=== PATIENT | male | born 1935 | race Caucasian/White ===

== ENCOUNTER 2017-02-18 19:51 | Emergency (ER) | payer MEDICARE ==
--- NOTE | 2017-02-18 21:21 | CT ---
CT PELVIC NONCONTRAST: Indication: Post-traumatic pelvic pain. Comparison: 11-21-16 FINDINGS: Re-demonstration of abnormal mottled mixed sclerotic and lucent density of the sacrum, compatible wit h sequella from prior sacral insufficiency fractures. There is also stable appearing mixed lucent and sclerotic density of each iliac wing. No traumatic diastasis of the symphysis pubis or either sacroi liac joint. Transversely oriented subtle fracture lucency of the medial aspect of the right ileum is grossly stable with a slight area of periosteal reaction. Stable appearing height loss of the imaged lower lumbar spine as well as a endplate sclerosis and prominent gas vacuum phenomenon. No displaced fracture of either hip. No evidence for pelvic hematoma. IMPRESSION: Re-demonstration of post-traumatic deformities of the pelvic bones bilaterally. POS: [facility]
== END 2017-02-18 21:30 | disposition home or self-care (01) ==
LOC: SCSER 19:51
DX: S70.01XA Contusion of right hip, initial encounter (principal); F03.90 Unspecified dementia, unspecified severity, without behavioral disturbance, psychotic disturbance, mood disturbance, and anxiety; E03.9 Hypothyroidism, unspecified; E27.1 Primary adrenocortical insufficiency; K21.9 Gastro-esophageal reflux disease without esophagitis; E78.5 Hyperlipidemia, unspecified; M06.9 Rheumatoid arthritis, unspecified; K31.84 Gastroparesis; Z87.891 Personal history of nicotine dependence; W18.30XA Fall on same level, unspecified, initial encounter; Y92.009 Unspecified place in unspecified non-institutional (private) residence as the place of occurrence of the external cause
CPT/HCPCS: 72192

== ENCOUNTER 2017-03-13 12:09 | Emergency (ER) | payer MEDICARE ==
[2017-03-13 13:18] LABS: #Basophils 0.1 thou/uL (0.0-0.2); #Lymphocytes 0.5 thou/uL (1.20-3.40); #Monocytes 0.3 thou/uL (0.11-0.59); #Neutrophils 5.3 thou/uL (1.40-6.50); %Basophils 1.2 % (0.0-1.0); %Eosinophils 0.5 % (0.0-10.0); %Lymphocytes 7.8 % (21.0-51.0); %Monocytes 5.1 % (0.0-10.0); Hematocrit 40.9 % (42.0-52.0); Mean Platelet Volume 5.7 fL (7.4-10.4); Red Blood Cell (RBC) Count 4.01 mill/uL (4.70-6.10); White Blood Cell (WBC) Count 6.2 thou/uL (4.8-10.8)
[2017-03-13 13:28] LABS: Prothrombin Time 13.5 SEC (12.0-14.7)
[2017-03-13 13:38] LABS: ALT (SGPT) 24 U/L (8-55); AST (SGOT) 20 U/L (5-34); Alkaline Phosphatase 102 U/L (40-150); Anion Gap 13 mmol/L (10-20); BUN (Urea Nitrogen) 24 mg/dL (8.4-25.7); Bilirubin, Total 0.3 mg/dL (0.2-1.2); Calc. Creatinine Clearance 0 mL/min (70-130); Calcium 9.8 mg/dL (7.8-10.44); Carbon Dioxide 29 mmol/L (23-31); Chloride 105 mmol/L (98-107); Estimated GFR-MDRD 82; Globulin 2.9 g/dL (2.4-3.5); Protein, Total 6.5 g/dL (5.8-8.1)
--- NOTE | 2017-03-13 14:01 | RAD ---
PORTABLE CHEST: Date: 03-13-17 Provided Clinical History: Fall. FINDINGS: Comparison 11-21-16. Cardiac and mediastinal silhouette is unchanged in appearance. Vascular calcification involves the ao rtic arch. Left subclavian cardiac pacing device is again seen and similar in position. No focal cons olidation, pleural fluid, or pneumothorax apparent. The bony thorax appears grossly intact. IMPRESSION: No evidence for an acute cardiopulmonary process. POS: [facility]
--- NOTE | 2017-03-13 14:02 | CT ---
CT HEAD NONCONTRAST: History: Fall, head injury. FINDINGS: There is no evidence of acute intracranial hemorrhage or infarct. Diffuse cortical atrophy and chroni c ischemic small vessel disease are apparent. There is no mass effect or shift of midline structures. Minimal mucosal thickening is apparent within the left maxillary sinus. There is calcification in th e arterial structures of the brain base. IMPRESSION: 1. No acute traumatic injury is demonstrated. 2. Atherosclerosis. POS: [facility]
--- NOTE | 2017-03-13 14:05 | CT ---
CT CERVICAL SPINE NONCONTRAST: History: Fall. Neck injury. FINDINGS: Vertebral body heights are maintained. Spondylolisthesis at the C3-4 and C4-5 levels is favored to be related to post-operative changes, as there is multilevel surgical absence of the posterior elements . Multilevel disc space narrowing and prominent osteophytosis are present. No acute fracture or dislo cation. There is calcification in the arterial structures. IMPRESSION: Prominent degenerative changes and post-operative changes of the cervical spine. No acute osseous abn ormalities are demonstrated. POS: [facility]
--- NOTE | 2017-03-13 15:03 | CT ---
CT RIGHT HIP NONCONTRAST: HISTORY: Fall. Right hip injury. FINDINGS: There is a moderate degree of joint space narrowing, osteophytosis, and subchondral sclerosis at the hip. No displaced fractures are apparent. osseous structures are severely demineralized. Subtle sc lerosis and cortical thickening at the superior acetabular level has the appearance of an old healed injury. There is some irregularity of the articular surface of the acetabulum. IMPRESSION: 1. Acetabular abnormality has the appearance of an old injury. No acute fractures are apparent. 2. Osteoporosis. 3. Mild osteoarthritic changes, right hip. POS: [facility]
[2017-03-13 15:16] LABS: Bilirubin Negative (Negative); Blood, Urine Trace (Negative); Glucose, Urine (Dipstick) Negative (Negative); Ketone, Urine Negative (Negative); Nitrite Negative (Negative); Protein, Urine (Dipstick) 30 mg/dL (Neg-Trace); Urobilinogen 0.2 mg/dL (0.2-1.0)
[2017-03-13 15:24] LABS: Bacteria/HPF Rare-Few HPF (None Seen); RBC/HPF 0-3 HPF (0-3); Squamous Epithelial None Seen HPF (0-3); WBC/HPF None Seen HPF (0-3)
== END 2017-03-13 15:50 | disposition home or self-care (01) ==
LOC: SCSER 12:09
DX: S09.90XA Unspecified injury of head, initial encounter (principal); M25.551 Pain in right hip; K21.9 Gastro-esophageal reflux disease without esophagitis; E78.5 Hyperlipidemia, unspecified; M06.9 Rheumatoid arthritis, unspecified; Z87.891 Personal history of nicotine dependence; W19.XXXA Unspecified fall, initial encounter; Y92.009 Unspecified place in unspecified non-institutional (private) residence as the place of occurrence of the external cause
CPT/HCPCS: 70450; 71010; 72125; 80053; 81003; 81015; 85025; 85610

== ENCOUNTER 2017-03-19 19:08 | Inpatient (IN) | payer MEDICARE ==
[2017-03-19 20:21] LABS: #Lymphocytes 0.5 thou/uL (1.20-3.40); #Monocytes 0.3 thou/uL (0.11-0.59); #Neutrophils 4.3 thou/uL (1.40-6.50); %Basophils 0.2 % (0.0-1.0); %Eosinophils 0.5 % (0.0-10.0); %Lymphocytes 9.3 % (21.0-51.0); %Monocytes 5.8 % (0.0-10.0); %Neutrophils 84.2 % (42.0-75.0); Hemoglobin 12.4 g/dL (14.0-18.0); Mean Corpuscular HGB CONC 32.4 g/dL (32.0-36.0); Mean Corpuscular Hemoglobin 34.1 pg (27.0-31.0); Mean Platelet Volume 6.7 fL (7.4-10.4); Platelet Count 162 thou/uL (130-400); RBC Distribution Width 13.1 % (11.5-14.5); Red Blood Cell (RBC) Count 3.62 mill/uL (4.70-6.10); White Blood Cell (WBC) Count 5.1 thou/uL (4.8-10.8)
[2017-03-19 20:39] LABS: Acetaminophen Less than 6.0 mcg/mL (10.0-30.0); Alcohol Less than 10 mg/dL (Less than 10); Salicylate Less than 8.0 mg/dL (15.0-30.0)
[2017-03-19 20:41] LABS: ALT (SGPT) 21 U/L (8-55); AST (SGOT) 16 U/L (5-34); Albumin 3.3 g/dL (3.4-4.8); Alkaline Phosphatase 106 U/L (40-150); Anion Gap 13 mmol/L (10-20); BUN (Urea Nitrogen) 23 mg/dL (8.4-25.7); Bilirubin, Total 0.3 mg/dL (0.2-1.2); CK (CPK) 31 U/L (30-200); Calc. Creatinine Clearance 0 mL/min (70-130); Calcium 9.9 mg/dL (7.8-10.44); Carbon Dioxide 27 mmol/L (23-31); Chloride 104 mmol/L (98-107); Estimated GFR-MDRD 77; Globulin 2.6 g/dL (2.4-3.5); Glucose 101 mg/dL (83-110); Lipase 14 U/L (8-78); Potassium 4.2 mmol/L (3.5-5.1); Protein, Total 5.9 g/dL (5.8-8.1); Sodium 140 mmol/L (136-145)
[2017-03-19 20:44] LABS: CKMB 1.5 ng/mL (0-6.6); Troponin I 0.016 ng/mL (< 0.028)
[2017-03-19] MEDS ORDERED: Lidocaine 4% Topical Sol 50 ML BOT ONE (21:01)
[2017-03-19] MEDS ORDERED: Lidocaine 2% Jelly 5 ML TUBE ONE (21:02)
[2017-03-19] MEDS ORDERED: Lidocaine 1% w/Epinephrine 1:100K 20 ML VIAL ONE (21:12)
--- NOTE | 2017-03-19 22:06 | RAD ---
CHEST ONE VIEW 03/19/17 COMPARISON: 03/13/17 HISTORY: Weakness and lethargy. Hypoxia. FINDINGS: Stable left sided transvenous pacemaker. Persistent atherosclerosis. Stable cardiac silhouette. Pulmo nary vessels and hilum are normal. Costophrenic angles are clear. Bibasilar interstitial infiltrates with a more focal alveolar opacification in the right lower lobe. No pneumothorax or osseous abnormal ities are appreciated. IMPRESSION: Bibasilar interstitial and right lower lobe alveolar infiltrates. Continued surveillance. POS: [facility]
[2017-03-19 22:24] LABS: Bilirubin Negative (Negative); Blood, Urine Moderate (Negative); Clarity CLEAR (Clear); Glucose, Urine (Dipstick) Negative (Negative); Leukocyte Negative (Negative); Nitrite Negative (Negative); Protein, Urine (Dipstick) 30 mg/dL (Neg-Trace); Specific Gravity, Urine 1.026 (1.002-1.036)
[2017-03-19 22:27] LABS: Bacteria/HPF None Seen HPF (None Seen); Hyaline Casts/LPF 0-3 HYALINE CAST LPF (0-3 Hyaline); Pathc Cast-AUWi Flag 0.13 (0-2.49); RBC/HPF GREATER THAN 50-TNTC HPF (0-3); Squamous Epithelial 0-3 HPF (0-3); WBC/HPF 0-3 HPF (0-3)
[2017-03-19 22:34] LABS: Cocaine Metabolite Screen Not Detected (NotDetected); Medtox Reader # READER 1; Methamphetamine Not Detected (NotDetected); Phencyclidine (PCP) Not Detected (NotDetected); THC/Cannabinoid Screen Not Detected (NotDetected)
[2017-03-19 22:35] LABS: Amphetamine Not Detected (NotDetected); Barbiturates Screen Not Detected (NotDetected); Benzodiazepine Screen Not Detected (NotDetected); Medtox Control Line Valid? VALID (VALID); Methadone Not Detected (NotDetected); Opiate Screen Detected (NotDetected); Oxycodone Screen Detected (NotDetected); Tricyclic Screen Detected (NotDetected)
--- NOTE | 2017-03-19 23:18 | CT ---
EXAM: NONCONTRAST HEAD CT HISTORY: Hypoxia at home. Altered mental status. Fall from standing. Lethargy and weakness. COMPARISON: 03/13/2017. TECHNIQUE: Noncontrast head CT is performed from skull base to skull vertex. FINDINGS: No parenchymal hemorrhage. No extraaxial hematoma. No midline shift. Basilar cisterns are patent. Age-appropriate atrophy. Cortical gomez-white matter differentiation is preserved. Ventricles and sulci are patent and symmetric. Stable white matter hypodensities due to chronic small vessel ischemic change. Stable intracranial arthrosclerosis. Adequate aeration of the mastoid air cells. Minimal left maxillary sinus mucosal disease. Intact ca lvarium. IMPRESSION: No intracranial post-traumatic sequelae. POS: [facility]
--- NOTE | 2017-03-19 23:25 | CT ---
EXAM: CT CERVICAL SPINE WITHOUT CONTRAST 03/19/17 HISTORY: Fall. Posttraumatic pain. COMPARISON: 03/13/17 TECHNIQUE: Cervical spine CT is performed without contrast. Reformatted images are submitted for interpretation. FINDINGS: The visualized soft tissue neck structures, upper mediastinum and lung apices are unremarkable. There is appropriate alignment of the lateral masses of C1 and C2. There is appropriate alignment of the facets. Odontoid process is intact. Stable anterolisthesis of C3 upon C4, C4 upon C5. Stable postsurgical changes involving the cervical spine at C4, C5, C6. There are varying degrees of central canal stenosis and foraminal narrowing on the basis of degenerat anum change. No obvious epidural hematoma. No definite prevertebral soft tissue swelling. Cervical spine vertebral body height is maintained. No fracture. IMPRESSION: 1. No fracture. 2. Stable postoperative and degenerative changes. POS: [facility]
[2017-03-20] MEDS ORDERED: cefTRIAXone\\ROCEPHIN 2 GM in Sodium Chloride 0.9% 100 ML IVPB SCH (00:15)
--- NOTE | 2017-03-20 01:55 | CON ---
DATE OF CONSULTATION: 03/19/2017 DATE OF HOSPITAL ADMISSION: 03/19/2017 REASON FOR CONSULTATION: 1. Gross bleeding per urethra after attempted Durbin catheter placement. 2. Past history of transurethral resection of prostate gland. 3. Altered mental status. 4. History of urethral stricture disease. PROBLEM LIST: Urethral stricture, N35.9 Transient iatrogenic urethral bleeding, N36.8 Delirium, R41.0 Urinary retention, R33.9 History of transurethral resection of prostate, Z90.79 HISTORY OF PRESENT ILLNESS: Mr. Alan Moulton is an 81-year-old white male with history of multiple medical issues. Patient developed weakness and lethargy at home per the home health nurse and he had hypoxia with SpO2 in the 80s, who had subsequent altered mental status (AMS), was brought to the emergency department. He does not currently have an indwelling Durbin catheter, but does have a long history of indwelling Durbin catheters in the past. In the course of assessment of the patient, emergency room personnel were not able to catheterize the patient probably secondary to a complicated urinary tract. A urine specimen is desired due to the AMS work up. The hospital is currently on diversion due to flu season. Patient states he has had multiple attempted catheterizations by emergency room personnel without success. He desires to for us to obtain a urine specimen to assess, whether he is having a current urinary tract infection. ALLERGIES: No known drug allergies. OUTPATIENT MEDICATION LIST: Includes the followin. Cytomel 5 mcg p.o. daily. 2. Folic acid 1 mg per day. 3. Tylenol Codeine No. 4 one tablet every 4 hours taken on the p.r.n. basis for chronic pain. 4. Synthroid 75 mcg p.o. daily. 5. Zofran ODT sublingual every 6 hours p.r.n. nausea. 6. Flomax 0.4 mg p.o. daily. 7. Vimpat 150 mg p.o. daily. 8. Prednisone 1 tablet once daily. 9. Carafate 1 gram p.o. daily as needed. 10. Baclofen 10 mg p.o. 3 times daily. 11. Seroquel XR 50 mg p.o. 3 times daily. 12. Vitamin D 1000 units p.o. daily. 13. Magnesium oxide 400 mg p.o. daily. 14. Simvastatin 40 mg p.o. daily. 15. Iron 325 mg containing 65 mg of iron one tablet p.o. daily. 16. Gabapentin 300 mg p.o. 1-3 times daily. 17. Aspirin 81 mg p.o. daily. 18. Phenergan 25 mg p.o. q.6 hours p.r.n. PAST MEDICAL HISTORY: Includes the followin. Raynaud's disease. 2. Fairchild's disease with hypoadrenalism. 3. Hypothyroidism. 4. Gastroesophageal reflux disease. 5. Gastroparesis. 6. History of kidney stones. 7. History of benign prostatic hypertrophy reportedly status post previous prostatectomy or transurethral resection of prostate by oral report. 8. Rheumatoid arthritis. 9. Spinal stenosis. 10. Dementia. 11. Partial complex seizures. 12. Vascular disease history. 13. Deep venous thrombosis of the bilateral lower extremities. PAST SURGICAL HISTORY: 1. Pacemaker. 2. Cataract surgery. 3. ERCP. 4. Cholecystectomy. 5. Hernia repair. 6. Transurethral resection of prostate. 7. Spinal surgery of the cervical spine and lumbar spine. PSYCHIATRIC HISTORY: Includes dementia and depression. 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 He is a former tobacco user and quit at about age 61 after having started smoking around the age 21. He was a 1 pack per day smoker for total of 40 pack years. Patient resides at home with his family, as family is very supportive. FAMILY MEDICAL HISTORY: Positive for cardiac disease and a paternal history of malignancy. Patient's mother also had lung cancer as well as COPD. PHYSICAL EXAMINATION: VITAL SIGNS: Blood pressure is 147/86, pulse 80, respirations 10, temperature is 98.2. GENERAL: This is a patient with altered mental status. He is not able to provide any useful information. He does occasionally utter conversational sentences, which appear appropriate for the condition which he finds himself. He is communicative, but is mostly extremely sedate. HEENT: Eyes are closed and not cooperating overall with exam. LUNGS: Clear to auscultation bilaterally. Chest, there is a chest wall pacemaker in place. This appears to be a simple pacemaker supposed to pacemaker defibrillator. CARDIAC: There is a regular rhythm. ABDOMEN: Soft and nontender superior to the umbilicus. Inferior to the umbilicus, the patient appears to be distended. GENITOURINARY: Phallus is externally without lesion. A Durbin catheter is not in place. There is blood per urethra. RECTAL: Digital rectal examination is performed finds residual prostate tissue present suggesting regrowth of the patient's benign prostatic hypertrophy. In general appearance of patient, he appears cachectic. NEUROLOGIC: Patient is unable to cooperate with the formal neurologic examination. His left pupil is 1 mm in size in pinpoint and right pupil also 1 mm in size in pinpoint. He is able to close his eyes, face appears symmetrical. He is not cooperative. He appears confused and disoriented. LABORATORY STUDIES AND X-RAY FINDINGS: The patient's white count is 5100 not elevated. There is a left shift with 84.2% neutrophils. The ANC is not elevated. Hemoglobin is 12.4 with hematocrit of 38.2. Serum chemistry showed the patient's blood urea nitrogen at 23, creatinine is 0.94 marginally increased from his last ER evaluation on 03/13/2017. No PSA has ever been obtained in this facility. ASSESSMENT AND PLAN: Patient with apparent urinary retention with distention of the lower abdomen. I note, patient is unable to spontaneously void for us or follow commands. Patient had attempted catheterization multiple times. Due to the fact that there has been high demand on cystoscopic instrumentation today due to the hospital being overloaded with patients and on is diversion status, a cystoscope was not immediately available for evaluation of lower urinary tract. Based on the oral history, I suspect there may be some type of urethral trauma, but this cannot be proven at this point. Based on physical examination, bladder appears to be somewhat distended. I recommended proceeding with a suprapubic tube placement, which I will perform at bedside. Over 80 minutes of initial evaluation and assessment time was spent in evaluation and assessment of this patient , over of which was in face to face evaluation or in coordination of care, or communication with the patient's family regarding care, exclusive of any procedures performed, [id number]. [facility]
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
[2017-03-20] MEDS ORDERED: WATER IVP SCH (04:00)
[2017-03-20] MEDS ORDERED: DEXTROSE 5% IVP SCH (04:00)
[2017-03-20] MEDS ORDERED: HYDROCORTISONE SOD SUCC IVP SCH (04:00)
[2017-03-20] MEDS ORDERED: Mag-Al 1200 mg/1200 mg/30 ML UDCUP PO PRN (05:27)
[2017-03-20] MEDS ORDERED: Hydrocortisone Sod Succ/PF 250 mg/2 ml Vial SLOW IVP SCH (05:27)
[2017-03-20] MEDS ORDERED: Lorazepam 1 MG TAB PO PRN (05:27)
[2017-03-20] MEDS ORDERED: Acetaminophen 325 MG TAB PO PRN (05:27)
[2017-03-20 05:32] VITALS: BMI 20.2
[2017-03-20] MEDS: Sodium Chloride 0.9% 1,000 ML IV SCH ×2 (06:25→22:28)
--- NOTE | 2017-03-20 06:27 | OP ---
DATE OF HOSPITAL ADMSSION: 03/19/2017 DATE OF PROCEDURE: 03/19/2017 DATE OF CONSULTATION: 03/19/2017 PREPROCEDURAL DIAGNOSES: 1. Presumed urinary retention. 2. Urethral obstruction. 3. Apparent urethral trauma after multiple instrumentation attempts in the ER. 4. Current altered mental status with acute need for urine specimen. POSTPROCEDURAL DIAGNOSES: 1. Presumed urinary retention. 2. Urethral obstruction. 3. Apparent urethral trauma after multiple instrumentation attempts in the ER. 4. Current altered mental status with acute need for urine specimen. PROBLEM LIST: Urethral stricture, N35.9 Transient iatrogenic urethral bleeding, N36.8 Delirium, R41.0 Urinary retention, R33.9 History of transurethral resection of prostate, Z90.79 PROCEDURES: 1. Suprapubic aspiration of urine, with Suprapubic tube insertion, initial. [id number] SURGEON: Ayan Hale M.D. FUSION JUNCTURE GRINDER SURGEON: None. ANESTHESIA: Local, total of 25 mL of 1% lidocaine with epinephrine. ESTIMATED BLOOD LOSS: Less than 5 mL COMPLICATIONS: None. SPECIMENS OBTAINED: Urine for urinalysis and culture. BRIEF HISTORY AND INDICATION FOR PROCEDURE: Mr. Alan Moulton is an 81-year- old white male with dementia who has had multiple recent falls and presents today with altered mental status of unknown origin. He did have an apparent hypoxic episode during the afternoon today. The patient presents with his who acts as the principal historian. Please see my separately dictated consultation report on this patient for further details. Patient was unable to assent or consent for himself and consent was given by the patient's . We discussed possible cystoscopic evaluation and suprapubic tube placement and she agreed for him to proceed with suprapubic tube placement today. TECHNICAL PROCEDURE: The patient was appropriately identified, date of and age was identified by the patient's family. The patient does respond somewhat to his name during the course of evaluation. An area on the lower abdomen was shaved of pubic hair. An ultrasound evaluation was performed of the patient's abdomen. The patient has relatively thin abdominal wall, total thickness of approximately 2 cm. The patient's bladder is easily identified and contains approximately 200 mL by ultrasound evaluation. A clear window is available without intervening bowel. We marked the patient's lower abdomen appropriately and subsequently sterilely prepped the area using ChloraPrep. Following sterile prep and drape, we infiltrated the midline planned SP tube insertion site area with 25 mL of 1% lidocaine with epinephrine. We infiltrated the skin superficially initially and subsequently deeper tissue. We sent this all the way down to the level of the anterior bladder. After adequate anesthesia was achieved, we made a transverse incision using a #11 blade knife down to the fascia which was incised. We then placed a 14-Lith[place]ian Rutner suprapubic tube without complication directly into the patient's bladder. The balloon was inflated to the recommended 4 mL. We then partially withdrew the SP tube, then sutured this to the patient's anterior abdomen. There were no complications evident. Urine draining from the patient's bladder grossly appears to be not infected. There does not appear to be any significant purulence or cloudiness to the urine. No abnormal bleeding was observed. We used a Ye needle and a silk 0 suture to secure the catheter to the patient's anterior abdomen in the event of a balloon failure. The catheter was further secured to the patient's anterior abdomen using Microfoam tape and secured the catheter Durbin bag to the patient's right leg also with Microfoam tape. The patient tolerated the procedure well and was essentially unaware of catheter insertion. Urine specimen will be collected for urinalysis and culture. COMPLICATIONS: None. ESTIMATED BLOOD LOSS: Less than 5 mL. MTDD
[2017-03-20] MEDS: Liothyronine Sodium 5 MCG TAB PO SCH (06:32)
[2017-03-20] MEDS: Levothyroxine Sodium 88 MCG TAB PO SCH (06:32)
[2017-03-20] MEDS: Acetaminophen/Codeine 30-300mg Tablet PO PRN ×2 (06:41→16:55)
[2017-03-20] MEDS: Aspirin 81 mg Enteric Coated Tablet PO SCH (09:17)
[2017-03-20] MEDS: Azithromycin 500 MG in Sodium Chloride 0.9% 250 ML 250 ML IVPB SCH (09:17)
[2017-03-20] MEDS: Enoxaparin Sodium 30 MG/0.3 ML SYRINGE SC SCH (09:19)
[2017-03-20] MEDS: Famotidine 20 MG TAB PO SCH ×2 (09:19→20:59)
[2017-03-20] MEDS: Lacosamide 50 mg Tablet PO SCH ×2 (09:20→20:59)
[2017-03-20] MEDS: Ferrous Sulfate 325 MG TAB PO SCH (09:20)
[2017-03-20] MEDS: Folic Acid 1 MG TAB PO SCH (09:21)
[2017-03-20] MEDS: predniSONE 5 MG TAB PO SCH (09:21)
[2017-03-20] MEDS: Sucralfate 1 GM TAB PO SCH ×4 (09:22→20:58)
[2017-03-20] MEDS: Hydrocortisone Sod Succ/PF 250 mg/2 ml Vial SLOW IVP SCH ×2 (12:10→20:57)
[2017-03-20] MEDS ORDERED: Ondansetron ODT 4 MG TAB PO PRN (12:31)
[2017-03-20] MEDS ORDERED: Non-Formulary Item 1 EACH (Acetaminophen With Codeine [Tylenol With Codeine #4] 1 TABLET) PO PRN (12:31)
[2017-03-20] MEDS ORDERED: Promethazine 25 MG TAB PO PRN (12:31)
[2017-03-20] MEDS: Baclofen 10 MG TAB PO SCH ×2 (14:15→21:00)
[2017-03-20] MEDS: Latanoprost 0.005% Ophth Soln 2.5 ml Bottle EA EYE SCH (20:57)
[2017-03-20] MEDS: Mirtazapine 15 MG TAB PO SCH (21:00)
[2017-03-20] MEDS: Donepezil HCl 10 MG TAB PO SCH (21:01)
[2017-03-20] MEDS: Tamsulosin HCl 0.4 MG CAP PO SCH (21:01)
[2017-03-20] MEDS: Simvastatin 40 MG TAB PO SCH (21:01)
[2017-03-20] MEDS: cefTRIAXone\\ROCEPHIN 2 GM in Sodium Chloride 0.9% 100 ML IVPB SCH (23:15)
[2017-03-21] MEDS: Hydrocortisone Sod Succ/PF 250 mg/2 ml Vial SLOW IVP SCH (03:44)
[2017-03-21] MEDS: Levothyroxine Sodium 88 MCG TAB PO SCH (05:24)
[2017-03-21] MEDS: Liothyronine Sodium 5 MCG TAB PO SCH (05:24)
[2017-03-21 05:43] LABS: #Lymphocytes 0.3 thou/uL (1.20-3.40); #Monocytes 0.2 thou/uL (0.11-0.59); #Neutrophils 6.2 thou/uL (1.40-6.50); %Basophils 0.4 % (0.0-1.0); %Eosinophils 0.1 % (0.0-10.0); %Lymphocytes 4.5 % (21.0-51.0); %Monocytes 3.6 % (0.0-10.0); %Neutrophils 91.5 % (42.0-75.0); Hemoglobin 11.6 g/dL (14.0-18.0); Mean Corpuscular HGB CONC 32.7 g/dL (32.0-36.0); Platelet Count 163 thou/uL (130-400); RBC Distribution Width 13.2 % (11.5-14.5); White Blood Cell (WBC) Count 6.8 thou/uL (4.8-10.8)
[2017-03-21 06:13] LABS: Anion Gap 11 mmol/L (10-20); BUN (Urea Nitrogen) 25 mg/dL (8.4-25.7); Calc. Creatinine Clearance 60 mL/min (70-130); Calcium 9.3 mg/dL (7.8-10.44); Carbon Dioxide 26 mmol/L (23-31); Chloride 107 mmol/L (98-107); Estimated GFR-MDRD 88; Glucose 136 mg/dL (83-110); Potassium 4.1 mmol/L (3.5-5.1); Sodium 140 mmol/L (136-145)
--- NOTE | 2017-03-21 07:53 | PDOC.PN ---
- Subjective Encounter Start Date: 03/21/17 Encounter Start Time: 10:00 Subjective: Patient with lots of mood swings last night per , more than normal for -: him. Off O2 with occ drop to 92% but usually 100%. No sig cough now. BP -: fine. - Objective Resuscitation Status: Resuscitation Status DNR:Do Not Resuscitate MAR Reviewed: Yes Vital Signs & Weight: Vital Signs (12 hours) Temp Pulse Resp BP Pulse Ox 03/21/17 04:42 98.0 F 90 15 145/80 H 97 03/20/17 20:10 97.3 F L 100 17 146/83 H 03/20/17 20:00 97.3 F L 100 17 Weight Weight 132 lb 14.4 oz I&O: 03/20/17 03/21/17 03/22/17 06:59 06:59 06:59 Intake Total 320 2570 Output Total 350 575 -1994 Result Diagrams: 03/21/17 04:47 03/21/17 04:47 Phys Exam - Physical Examination Constitutional: NAD HEENT: moist MMs Respiratory: no wheezing, no rales, no rhonchi Cardiovascular: RRR, no significant murmur Gastrointestinal: soft, positive bowel sounds Suprapubic cath in place Neurological: non-focal, moves all 4 limbs Psychiatric: normal affect Deviation from normal: Oriented to person only, baseline for him. Normal mood right now. Dx/Plan (1) Altered mental status Code(s): R41.82 - ALTERED MENTAL STATUS, UNSPECIFIED Status: Acute (2) Dementia Code(s): F03.90 - UNSPECIFIED DEMENTIA WITHOUT BEHAVIORAL DISTURBANCE Status: Chronic (3) Acute urinary retention Code(s): R33.8 - OTHER RETENTION OF URINE Status: Acute Comment: s/p suprapubic catheter placement in ER by Dr. Hale (4) Pneumonia Code(s): J18.9 - PNEUMONIA, UNSPECIFIED ORGANISM Status: Acute Qualifiers: Laterality: bilateral Lung location: lower lobe of lung Comment: possible infiltrates on CXR, but no clinical signs. On abx. 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 ADRENOCORTICAL INSUFFICIENCY Status: Chronic (6) BPH (benign prostatic hyperplasia) Code(s): N40.0 - BENIGN PROSTATIC HYPERPLASIA WITHOUT LOWER URINRY TRACT SYMP Status: Chronic (7) Dyslipidemia Code(s): E78.5 - HYPERLIPIDEMIA, UNSPECIFIED Status: Chronic (8) GERD (gastroesophageal reflux disease) Code(s): K21.9 - GASTRO-ESOPHAGEAL REFLUX DISEASE WITHOUT ESOPHAGITIS Status: Chronic (9) Hypothyroidism Code(s): E03.9 - HYPOTHYROIDISM, UNSPECIFIED Status: Chronic (10) Protein-calorie malnutrition, moderate Code(s): E44.0 - MODERATE PROTEIN-CALORIE MALNUTRITION Status: Chronic (11) Raynaud phenomenon Code(s): I73.00 - RAYNAUD'S SYNDROME WITHOUT GANGRENE Status: Chronic (12) Seizure disorder Code(s): G40.909 - EPILEPSY, UNSP, NOT INTRACTABLE, WITHOUT STATUS EPILEPTICUS Status: Chronic - Plan cont current plan of care, continue antibiotics, PT/OT Vitals all stable. No evidence sepsis or significant infection. Don't see a -: flu test result to work up fever at home, so will check now. No more fevers -: in hospital. Will stop stress steroids and resume home prednisone. Will try -: to contact patient's water treatment plant mechanic Dr. Yi Gamino [phone] * . - Discharge Day Encounter end time: 10:30
[2017-03-21] MEDS: Sucralfate 1 GM TAB PO SCH ×4 (09:44→20:47)
[2017-03-21] MEDS: Baclofen 10 MG TAB PO SCH ×3 (09:45→20:47)
[2017-03-21] MEDS: Ferrous Sulfate 325 MG TAB PO SCH (09:46)
[2017-03-21] MEDS: Amlodipine 5 MG TAB PO SCH (09:46)
[2017-03-21] MEDS: Aspirin 81 mg Enteric Coated Tablet PO SCH (09:47)
[2017-03-21] MEDS: Folic Acid 1 MG TAB PO SCH (09:47)
[2017-03-21] MEDS: Famotidine 20 MG TAB PO SCH ×2 (09:47→20:48)
[2017-03-21] MEDS: Magnesium Oxide 400 MG TAB PO SCH (09:47)
[2017-03-21] MEDS: predniSONE 5 MG TAB PO SCH (09:47)
[2017-03-21] MEDS: Enoxaparin Sodium 30 MG/0.3 ML SYRINGE SC SCH (09:49)
[2017-03-21] MEDS: Sodium Chloride 0.9% 1,000 ML IV SCH (10:07)
[2017-03-21] MEDS: Azithromycin 500 MG in Sodium Chloride 0.9% 250 ML 250 ML IVPB SCH (10:07)
[2017-03-21] MEDS: Acetaminophen/Codeine 30-300mg Tablet PO PRN (10:44)
[2017-03-21] MEDS: Lacosamide 50 mg Tablet PO SCH ×2 (11:17→20:46)
--- NOTE | 2017-03-21 13:54 | PQF ---
CLINICAL DOCUMENTATION IMPROVEMENT CLARIFICATION FORM: ICD-10 Updated PLEASE DO AN ADDENDUM TO THE PROGRESS NOTE WITH ANY DOCUMENTATION UPDATES OR ADDITIONS AND CARRY THROUGH TO DC SUMMARY. THANK YOU. DATE: 03/21/17 ATTN: DR. SCALES / DR. NAVI COLEY Please exercise your independent, professional judgment in responding to the clarification form. Clinical indicators are provided on the bottom of this form for your review Please check appropriate box(s): [ X ] Encephalopathy: Type: [ X ] Acute [ ] Subacute [ ] Chronic Etiology: [ ] Hypertensive [ ] Metabolic [ ] Toxic [ ] Hepatic with Coma [ ] Hepatic w/o Coma [ ] Hypoxic [ ] Septic [ ] Drug induced: [ ] Unspecified [ ] in the setting of underlying dementia [ ] Other (please specify) [ ] Transient Alteration of Awareness [ ] Other diagnosis [ ] Unable to determine In addition, please specify: Present on Admission (POA): [ X ] Yes [ ] No [ ] Unable to determine For continuity of documentation, please document condition throughout progress notes and discharge summary. Thank You. CLINICAL INDICATORS - SIGNS / SYMPTOMS / LABS ER NOTE: " PROVIDES THE HX, PATIENT IS NOT AWARE OF THE SURROUNDINGS, AWAKE BUT DOES NOT RESPOND TO COMMANDS H&P 03/20: "THIS IS AN 81-YEAR OLD GENTLEMAN WHO IS BEING ADMITTED FOR INCREASING LETHARGY AND DECREASE IN RESPONSIVENESS." RISKS: ADMISSION FOR PNEUMONIA TREATMENT: SEROQUEL (13-PRESENT) ARICEPT (1/3-PRESENT) NAMENDA (1/3-PRESENT) IV ROCEPHIN (1/2-PRESENT) IV ZITHROMAX (13-PRESENT) BRAIN CT (This form is maintained as a part of the permanent medical record) 2014 [employer]. All Rights Reserved MTDD
[2017-03-21] MEDS: Simvastatin 40 MG TAB PO SCH (20:48)
[2017-03-21] MEDS: Tamsulosin HCl 0.4 MG CAP PO SCH (20:48)
[2017-03-21] MEDS: Donepezil HCl 10 MG TAB PO SCH (20:48)
[2017-03-21] MEDS: Mirtazapine 15 MG TAB PO SCH (20:49)
[2017-03-21] MEDS: Latanoprost 0.005% Ophth Soln 2.5 ml Bottle EA EYE SCH (20:49)
[2017-03-21] MEDS: cefTRIAXone\\ROCEPHIN 2 GM in Sodium Chloride 0.9% 100 ML IVPB SCH (23:04)
[2017-03-22] MEDS: Sodium Chloride 0.9% 1,000 ML IV SCH ×3 (01:02→21:44)
[2017-03-22] MEDS: Liothyronine Sodium 5 MCG TAB PO SCH (05:35)
[2017-03-22] MEDS: Levothyroxine Sodium 88 MCG TAB PO SCH (05:35)
[2017-03-22] MEDS: Ferrous Sulfate 325 MG TAB PO SCH (08:50)
[2017-03-22] MEDS: Aspirin 81 mg Enteric Coated Tablet PO SCH (08:50)
[2017-03-22] MEDS: Amlodipine 5 MG TAB PO SCH (08:50)
[2017-03-22] MEDS: Folic Acid 1 MG TAB PO SCH (08:50)
[2017-03-22] MEDS: Sucralfate 1 GM TAB PO SCH ×4 (08:50→21:37)
[2017-03-22] MEDS: predniSONE 5 MG TAB PO SCH (08:51)
[2017-03-22] MEDS: Baclofen 10 MG TAB PO SCH ×3 (08:51→21:30)
[2017-03-22] MEDS: Famotidine 20 MG TAB PO SCH ×2 (08:51→21:35)
[2017-03-22] MEDS: Magnesium Oxide 400 MG TAB PO SCH (08:51)
[2017-03-22] MEDS: Enoxaparin Sodium 30 MG/0.3 ML SYRINGE SC SCH (08:54)
[2017-03-22] MEDS: Lacosamide 50 mg Tablet PO SCH ×2 (08:55→21:36)
[2017-03-22] MEDS: Azithromycin 500 MG in Sodium Chloride 0.9% 250 ML 250 ML IVPB SCH (09:09)
--- NOTE | 2017-03-22 14:33 | PDOC.PN ---
- Subjective Encounter Start Date: 03/22/17 Encounter Start Time: 14:31 Subjective: seen and examined feeling better-bleeding around cath site noted - Objective Resuscitation Status: Resuscitation Status DNR:Do Not Resuscitate Vital Signs & Weight: Vital Signs (12 hours) Temp Pulse Resp BP BP Pulse Ox 03/22/17 11:20 98.0 F 80 16 149/93 H 97 03/22/17 08:50 73 162/99 H 03/22/17 07:30 97.7 F 75 16 162/92 H 95 Weight Weight 132 lb 14.4 oz I&O: 03/21/17 03/22/17 03/23/17 06:59 06:59 06:59 Intake Total 2570 3340 Output Total 575 2775 Balance 1994 Result Diagrams: 03/21/17 04:47 03/21/17 04:47 Additional Labs: Accuchecks 03/22/17 11:14 POC Glucose 94 Phys Exam - Physical Examination Constitutional: NAD HEENT: PERRLA, moist MMs, sclera anicteric, TM's clear, oral pharynx no lesions Neck: no nodes, no JVD, supple, full ROM Respiratory: no wheezing, no rales, no rhonchi, clear to auscultation bilateral Cardiovascular: RRR, no significant murmur, no rub Gastrointestinal: soft, non-tender, no distention, positive bowel sounds Musculoskeletal: no edema, pulses present a little confused Skin: no rash Dx/Plan (1) Acute urinary retention Code(s): R33.8 - OTHER RETENTION OF URINE Status: Acute Comment: s/p suprapubic catheter placement in ER by Dr. Hale (2) Altered mental status Code(s): R41.82 - ALTERED MENTAL STATUS, UNSPECIFIED Status: Acute (3) Pneumonia Code(s): J18.9 - PNEUMONIA, UNSPECIFIED ORGANISM Status: Acute Qualifiers: Laterality: bilateral Lung location: lower lobe of lung Comment: possible infiltrates on CXR, but no clinical signs. On abx. (4) Dementia Code(s): F03.90 - UNSPECIFIED DEMENTIA WITHOUT BEHAVIORAL DISTURBANCE Status: Chronic (5) GERD (gastroesophageal reflux disease) Code(s): K21.9 - GASTRO-ESOPHAGEAL REFLUX DISEASE WITHOUT ESOPHAGITIS Status: Chronic (6) Hypothyroidism Code(s): E03.9 - HYPOTHYROIDISM, UNSPECIFIED Status: Chronic (7) MDS (myelodysplastic syndrome) Code(s): D46.9 - MYELODYSPLASTIC SYNDROME, UNSPECIFIED Status: Chronic (8) Nephrolithiasis Status: Chronic - Plan plan discussed w/ family, continue antibiotics, PT/OT, social welfare clerk, respiratory therapy Change the dressing -: Monitor H/h -: dispo planning * .
[2017-03-22] MEDS: Acetaminophen/Codeine 30-300mg Tablet PO PRN (15:42)
[2017-03-22] MEDS: Mirtazapine 15 MG TAB PO SCH (21:32)
[2017-03-22] MEDS: Tamsulosin HCl 0.4 MG CAP PO SCH (21:33)
[2017-03-22] MEDS: Donepezil HCl 10 MG TAB PO SCH (21:34)
[2017-03-22] MEDS: Simvastatin 40 MG TAB PO SCH (21:35)
[2017-03-22] MEDS: Latanoprost 0.005% Ophth Soln 2.5 ml Bottle EA EYE SCH (21:37)
[2017-03-23] MEDS: cefTRIAXone\\ROCEPHIN 2 GM in Sodium Chloride 0.9% 100 ML IVPB SCH (00:03)
[2017-03-23] MEDS: Sodium Chloride 0.9% 1,000 ML IV SCH ×2 (06:16→20:40)
[2017-03-23] MEDS: Levothyroxine Sodium 88 MCG TAB PO SCH (06:21)
[2017-03-23] MEDS: Liothyronine Sodium 5 MCG TAB PO SCH (06:21)
[2017-03-23] MEDS: Acetaminophen/Codeine 30-300mg Tablet PO PRN ×2 (06:21→13:34)
[2017-03-23] MEDS: Amlodipine 5 MG TAB PO SCH (10:07)
[2017-03-23] MEDS: Folic Acid 1 MG TAB PO SCH (10:07)
[2017-03-23] MEDS: Famotidine 20 MG TAB PO SCH ×2 (10:07→21:20)
[2017-03-23] MEDS: Baclofen 10 MG TAB PO SCH ×3 (10:07→21:18)
[2017-03-23] MEDS: predniSONE 5 MG TAB PO SCH (10:08)
[2017-03-23] MEDS: Aspirin 81 mg Enteric Coated Tablet PO SCH (10:08)
[2017-03-23] MEDS: Sucralfate 1 GM TAB PO SCH ×4 (10:08→21:20)
[2017-03-23] MEDS: Ferrous Sulfate 325 MG TAB PO SCH (10:08)
[2017-03-23] MEDS: Magnesium Oxide 400 MG TAB PO SCH (10:08)
[2017-03-23] MEDS: Lacosamide 50 mg Tablet PO SCH ×2 (10:14→17:53)
[2017-03-23] MEDS: Enoxaparin Sodium 30 MG/0.3 ML SYRINGE SC SCH (10:24)
[2017-03-23] MEDS: Azithromycin 500 MG in Sodium Chloride 0.9% 250 ML 250 ML IVPB SCH (10:59)
--- NOTE | 2017-03-23 13:25 | PDOC.PN ---
- Subjective Encounter Start Date: 03/23/17 Encounter Start Time: 13:23 Subjective: Seen and [id number] PT -: This patient is not a great candidate for in patient rehab -: Will benefit more from SNF - Objective Resuscitation Status: Resuscitation Status DNR:Do Not Resuscitate Vital Signs & Weight: Vital Signs (12 hours) Temp Pulse Resp BP BP Pulse Ox 03/23/17 12:01 97.6 F 76 18 114/79 95 03/23/17 10:07 55 L 121/74 03/23/17 08:37 97.9 F 55 L 14 121/74 94 L Weight Weight 132 lb 14.4 oz I&O: 03/22/17 03/23/17 03/24/17 06:59 06:59 06:59 Intake Total 3340 3190 Output Total 2775 4025 Balance 565 -835 Result Diagrams: 03/21/17 04:47 03/21/17 04:47 Phys Exam - Physical Examination Constitutional: NAD HEENT: PERRLA, moist MMs, sclera anicteric, TM's clear Neck: no nodes, no JVD, supple, full ROM Respiratory: no wheezing, no rales, no rhonchi Cardiovascular: RRR, no significant murmur, no rub Gastrointestinal: soft, non-tender, no distention, positive bowel sounds Musculoskeletal: no edema, pulses present Neurological: non-focal, normal sensation, moves all 4 limbs Deviation from normal: confused Dx/Plan (1) Acute urinary retention Code(s): R33.8 - OTHER RETENTION OF URINE Status: Acute Comment: s/p suprapubic catheter placement in ER by Dr. Hale (2) Altered mental status Code(s): R41.82 - ALTERED MENTAL STATUS, UNSPECIFIED Status: Acute (3) Pneumonia Code(s): J18.9 - PNEUMONIA, UNSPECIFIED ORGANISM Status: Acute Qualifiers: Laterality: bilateral Lung location: lower lobe of lung Comment: possible infiltrates on CXR, but no clinical signs. On abx. (4) Dementia Code(s): F03.90 - UNSPECIFIED DEMENTIA WITHOUT BEHAVIORAL DISTURBANCE Status: Chronic (5) GERD (gastroesophageal reflux disease) Code(s): K21.9 - GASTRO-ESOPHAGEAL REFLUX DISEASE WITHOUT ESOPHAGITIS Status: Chronic (6) Hypothyroidism Code(s): E03.9 - HYPOTHYROIDISM, UNSPECIFIED Status: Chronic (7) MDS (myelodysplastic syndrome) Code(s): D46.9 - MYELODYSPLASTIC SYNDROME, UNSPECIFIED Status: Chronic (8) Nephrolithiasis Status: Chronic - Plan plan discussed w/ family, continue antibiotics, PT/OT, social worker delinquency prevention -Not very clear on the continued need for antibiotics -: -Consider SNF as opposed to In-pt Rehab -: -Reconsult caseManager -: -Dispo planning * .
[2017-03-23] MEDS: Mirtazapine 15 MG TAB PO SCH (21:20)
[2017-03-23] MEDS: Tamsulosin HCl 0.4 MG CAP PO SCH (21:20)
[2017-03-23] MEDS: Simvastatin 40 MG TAB PO SCH (21:20)
[2017-03-23] MEDS: Latanoprost 0.005% Ophth Soln 2.5 ml Bottle EA EYE SCH (21:21)
[2017-03-23] MEDS: Donepezil HCl 10 MG TAB PO SCH (21:21)
[2017-03-24] MEDS: Acetaminophen/Codeine 30-300mg Tablet PO PRN (02:07)
[2017-03-24] MEDS: Levothyroxine Sodium 88 MCG TAB PO SCH (03:48)
[2017-03-24] MEDS: Liothyronine Sodium 5 MCG TAB PO SCH (03:48)
[2017-03-24] MEDS: Famotidine 20 MG TAB PO SCH (08:55)
[2017-03-24] MEDS: Baclofen 10 MG TAB PO SCH ×2 (08:55→14:40)
[2017-03-24] MEDS: Amlodipine 5 MG TAB PO SCH (08:55)
[2017-03-24] MEDS: Aspirin 81 mg Enteric Coated Tablet PO SCH (08:55)
[2017-03-24] MEDS: predniSONE 5 MG TAB PO SCH (08:55)
[2017-03-24] MEDS: Magnesium Oxide 400 MG TAB PO SCH (08:55)
[2017-03-24] MEDS: Folic Acid 1 MG TAB PO SCH (08:55)
[2017-03-24] MEDS: Enoxaparin Sodium 30 MG/0.3 ML SYRINGE SC SCH ×2 (08:56→11:29)
[2017-03-24] MEDS: Ferrous Sulfate 325 MG TAB PO SCH (08:59)
[2017-03-24] MEDS: Lacosamide 50 mg Tablet PO SCH (09:10)
[2017-03-24] MEDS: Sucralfate 1 GM TAB PO SCH ×2 (09:57→12:57)
[2017-03-24] MEDS ORDERED: Bisacodyl 10 MG SUPP PR SCH (11:45)
[2017-03-24 12:16] VITALS: BP 124/82; TEMP 98
--- NOTE | 2017-03-25 15:04 | DIS ---
For details of the history and physical, procedure notes, and consultative notes, please refer to dic tations on record. SUMMARY: This is an 81-year-old gentleman who was brought in with mental status change, got diagnose d with bilateral pneumonitis as well as acute urinary retention. Patient was seen in consultation by Urology, Dr. Hale, who eventually did perform suprapubic catheter insertion. Patient treated with broad-spectrum antibiotics and having maintained sustained clinical improvement. Patient was subsequ ently discharged on the 03/24/2017. CLINICAL DIAGNOSES DURING THIS HOSPITALIZATION: Include, 1. Acute urinary retention, status post suprapubic catheter placement. 2. Altered mental status. 3. Bilateral pneumonitis. 4. Dementia. 5. Myelodysplastic syndrome. 6. Hematuria. 7. Reflux disease. 8. Nephrolithiasis. Patient initially was not approved for inpatient rehab, therefore, disease case manager rn was then reconsulted to proceed with alf facility placement. Patient subsequently was t hen transferred to [facility]. DISCHARGE MEDICATIONS: Patient got discharged on the following medications: Tylenol, amlodipine 5 m g daily, aspirin 81, baclofen 5 mg p.o. t.i.d., vitamin D3, ferrous sulfate 325, folic acid 1 mg, Vim pat 150 mg p.o. b.i.d., Synthroid 88 mcg p.o. daily, Cytomel 5 mcg p.o. daily, magnesium 400 mg p.o. daily, Namenda, Remeron 15 mg p.o. at bedtime, Zofran 4 mg q.6 hours p.r.n., prednisone 5 mg p.o. adam ly, Phenergan 12.5 mg q.6 hours p.r.n., Seroquel 50 mg p.o. t.i.d., simvastatin 40 mg p.o. at bedtime , Carafate 1 gram p.o. q.i.d., Flomax 0.4 mg p.o. at bedtime. DISCHARGE INSTRUCTIONS: Will be dependent on final instruction from the rehabilitation. Total time spent including urxi-mb-fiae encounter 32 minutes.
--- NOTE | 2017-06-07 11:43 | EKG ---
Test Reason : Blood Pressure : / mmHG Vent. Rate : 076 BPM Atrial Rate : 094 BPM P-R Int : 000 ms QRS Dur : 100 ms QT Int : 380 ms P-R-T Axes : 000 -71 058 degrees QTc Int : 427 ms Electronic atrial pacemaker Left anterior fascicular block Abnormal ECG Confirmed by EMERY MURRAY M.D. ([id number]), make up editor GONZALEZ TADEO ([id number]) on 06/07/2017 11:43:07 AM Referred By: Confirmed By:EMERY MURRAY M.D.
== END 2017-03-24 15:43 | DRG 193 ==
LOC: ERS 19:08 → ERHOLD 23:41 → SURG A 03-20 05:26
PROVIDERS: ADMIT Internal Medicine; ATTEND Internal Medicine
PROC: 0T9B30Z Drainage of Bladder with Drainage Device, Percutaneous Approach (ICD-10-PCS; principal; 2017-03-19)
DX: J18.9 Pneumonia, unspecified organism (principal); G93.40 Encephalopathy, unspecified; E44.0 Moderate protein-calorie malnutrition; E27.1 Primary adrenocortical insufficiency; G40.209 Localization-related (focal) (partial) symptomatic epilepsy and epileptic syndromes with complex partial seizures, not intractable, without status epilepticus; E86.0 Dehydration; D46.9 Myelodysplastic syndrome, unspecified; F03.90 Unspecified dementia, unspecified severity, without behavioral disturbance, psychotic disturbance, mood disturbance, and anxiety; E03.9 Hypothyroidism, unspecified; K21.9 Gastro-esophageal reflux disease without esophagitis; I73.00 Raynaud's syndrome without gangrene; R33.9 Retention of urine, unspecified; N36.8 Other specified disorders of urethra; Z68.20 Body mass index [BMI] 20.0-20.9, adult; Z79.01 Long term (current) use of anticoagulants; Z87.891 Personal history of nicotine dependence; Z86.718 Personal history of other venous thrombosis and embolism; Z90.79 Acquired absence of other genital organ(s); Z95.0 Presence of cardiac pacemaker; Z66 Do not resuscitate; Z87.442 Personal history of urinary calculi; Z90.49 Acquired absence of other specified parts of digestive tract; Z82.49 Family history of ischemic heart disease and other diseases of the circulatory system; Z80.9 Family history of malignant neoplasm, unspecified; Z83.6 Family history of other diseases of the respiratory system; Z80.1 Family history of malignant neoplasm of trachea, bronchus and lung
CPT/HCPCS: 36415; 36416; 51701; 70450; 71045; 72125; 80048; 80053; 80306; 80307; 81003; 81015; 82140; 82550; 82553; 83690; 84439; 84443; 84484; 85025; 87040; 87086; 87804; 93005; 94640; 96365; 96367; G8978-GP-CM; G8979-GP-CK; G8987-GO-CM; G8988-GO-CJ; J0456; J0696; J1650; J1720; J2001; J7050; J7070; J7620